=== PATIENT | female | born 1960 | race African-American/Black ===

== ENCOUNTER 2016-03-12 11:54 | Emergency (ER) | payer MEDICARE ==
[~2016-03-12 11:54] MED LIST: Lorazepam 2 MG/ML VIAL ONE; Sodium Chloride 0.9% 1,000 ML BAG ONE
[2016-03-12] MEDS ORDERED: Lorazepam 2 MG/ML VIAL ONE (12:26)
[2016-03-12] MEDS ORDERED: Insulin Regular 300 UNITS/3 ML VIAL ONE (12:43)
[2016-03-12 13:12] LABS: INR-International Normal Ratio 1.2; Prothrombin Time 15.2 SEC (12.0-14.7)
[2016-03-12 13:23] LABS: Acetaminophen Less than 3.0 mcg/mL (10.0-30.0); Alcohol Less than 10 mg/dL (Less than 10); Amylase 33 U/L (25-125); Salicylate Less than 5.0 mg/dL (15.0-30.0)
[2016-03-12 13:25] LABS: PTT 21.2 SEC (22.9-36.1)
[2016-03-12 13:26] LABS: Bilirubin Negative (Negative); Blood, Urine Moderate (Negative); Clarity Hazy (Clear); Glucose, Urine (Dipstick) 500 mg/dL (Negative); Leukocyte Negative (Negative); Nitrite Negative (Negative); Protein, Urine (Dipstick) 100 mg/dL (Neg-Trace); Squamous Epithelial 0-3 HPF (0-3); Transitional Epithelial 0-3 HPF (0-3); Urobilinogen 0.2 mg/dL (0.2-1.0)
[2016-03-12 13:27] LABS: Bacteria/HPF Rare-Few HPF (None Seen); Crystals/HPF RARE AMORPH URATES HPF (Negative); Hyaline Casts/LPF 4-6 HYALINE CAST LPF (0-3 Hyaline); Renal Epithelial 0-3 HPF (0-3); Yeast-All Forms Rare HPF (None Seen)
[2016-03-12 13:27] LABS: ALT (SGPT) 14 U/L (0-55); AST (SGOT) 22 U/L (5-34); Albumin 3.8 g/dL (3.5-5.0); Alkaline Phosphatase 69 U/L (40-150); Anion Gap 30 mmol/L (10-20); BUN (Urea Nitrogen) 16 mg/dL (9.8-20.1); Bilirubin, Total 0.7 mg/dL (0.2-1.2); CK (CPK) 537 U/L (29-168); Calc. Creatinine Clearance 0 mL/min (70-130); Calcium 9.5 mg/dL (7.8-10.44); Chloride 105 mmol/L (98-107); Estimated GFR-MDRD 33; Glucose 534 mg/dL (70-105); Lipase 35 U/L (8-78); Potassium 3.2 mmol/L (3.5-5.1); Protein, Total 6.8 g/dL (6.0-8.3); Sodium 140 mmol/L (136-145)
[2016-03-12 13:28] LABS: Other Casts/LPF 4-6 MIXED CASTS LPF (0-3 Hyaline)
--- NOTE | 2016-03-12 13:35 | ERRECORD ---
[facility] EMERGENCY RECORD HPI GENERAL CHIEF COMPLAINT: Patient presents [place] close [place] but apparently there is no evidence of mvc. 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 unknown last treatment. pt non-verbal and is almost constantly seizing with eye deviation. (13:09 LLDO) Patient presents for evaluation of deviation is to the right and then to the left. most of tonic activity seems to be on the right upper and lower extremities. pt had a stroke last year (don't know what type) but that is her only previous seizeure. is constantly moving and cannot get an adequate CT head at this time. (13:18 LLDO) HISTORIAN: Additional history obtained from EMS. (13:18 LLDO) MECHANISM OF INJURY: Unknown mechanism, Mechanism of injury is unknown. (13:18 LLDO) LOCATION: Symptoms are generalized. (13:18 LLDO) QUALITY: unknown. (13:18 LLDO) SEVERITY: Maximum severity of symptoms moderate, Currently symptoms are moderate. (13:18 LLDO) TIME COURSE: Patient unable to describe onset of symptoms, are intermittent. (13:18 LLDO) ASSOCIATED WITH: Associated with ONLY ABOVE. (13:18 LLDO) EXACERBATED BY: Patient's condition exacerbated by ?. (13:18 LLDO) RELIEVED BY: Patient's condition relieved by nothing. (13:18 LLDO) ROS (13:22 LLDO) CONSTITUTIONAL: pt not verbal at all and no family here now. did get a call from friend but scant medical info. EYES: ONLY IN HPI. NOTES: Systems not reviewed; unable. PAST MEDICAL HISTORY MEDICAL HISTORY: Notes: stroke 2016, high blood pressure, gerd,. (12:42 LWAL) FEMALE SURGICAL HISTORY: kidney and pancreas transplant, cataracts both eyes, cornea transplants. (12:42 LWAL) NOTES: Nursing records reviewed, Agree with nursing records, Medication list reviewed. (13:28 LLDO) KNOWN ALLERGIES morphine (bulk) CURRENT MEDICATIONS (12:39 LWAL) Prograf: CAPSULE : Strength - 1 mg : ORAL Patient Dose: Unknown. &a-1R&a+25V*p+0X*r7455O*c202B*c15G*c2P*p-0X&a-25V&a+1R Name: Mel Simmons : 1960 F55 MedRec: [id number] AcctN: [id number] Prepared: Claudia Mar 12, 2016 13:39 by Interface Page 1 of 3 pMD [facility] EMERGENCY RECORD omeprazole: CAPSULE,DELAYED RELEASE (ENTERIC COATED) : Strength - 10 mg : ORAL Patient Dose: Unknown. PHYSICAL EXAM (13:24 LLDO) CONSTITUTIONAL: Vital signs reviewed, Patient afebrile, Pulse, tachycardic, 122, Blood pressure, BP SLIGHTLY LOW, Respiratory rate normal, Patient appears non toxic, Patient alert and oriented to person, place and time, respiration and sats both okay. continues to be tachy. HEAD: Head exam included findings of head atraumatic, normocephalic. EYES: SEE HPI AND ROS. left cataract. NECK: Neck exam included findings of normal range of motion, Trachea midline, Thyroid normal. RESPIRATORY CHEST: Respiratory exam included findings of no respiratory distress. UPPER EXTREMITY: left forearm shunt. NEURO: [place] coma scale, Neuro exam findings include patient oriented to, Speech, Gait abnormal, see above. SKIN: Skin exam included findings of skin warm, dry, and normal in color. MEDICATION ADMINISTRATION SUMMARY Drug Name: *sodium chloride 0.9 % intravenous, Dose Ordered: 2 L, Route: IV Fluid Infusion, Status: Ordered, Time: 12:53 03/12/2016, Drug Name: Ativan injection, Dose Ordered: 2 mg, Route: IV Push, Status: Ordered, Time: 12:15 03/12/2016, Drug Name: Ativan injection, Dose Ordered: 2 mg, Route: IV Push, Status: Ordered, Time: 12:15 03/12/2016, Drug Name: Ativan injection, Dose Ordered: 2 mg, Route: IV Push, Status: Given, Time: 12:53 03/12/2016, Drug Name: insulin regular pork, Dose Ordered: 8 units, Route: IV Push, Status: Given, Time: 12:50 03/12/2016, *Additional information available in notes, Detailed record available in Medication Service section. PROBLEM LIST No recorded problems DIAGNOSIS (13:31 LLDO) FINAL: PRIMARY: Altered mental status, ADDITIONAL: Seizure, Type 2 Diabetes mellitus (IDDM) with Coma - hypoglycemic, UTI SITE NOT SPECIFIED. PRESCRIPTION No recorded prescriptions &a-1R&a+25V*p+0X*s5357S*c202B*c15G*c2P*p-0X&a-25V&a+1R Name: Mel Simmons : 1960 F55 MedRec: [id number] AcctNum: [id number] Prepared: Claudia Mar 12, 2016 13:39 by Interface Page 2 of 3 pMD [facility] EMERGENCY RECORD DISPOSITION PATIENT: Disposition Type: Transfer, Disposition: Transfer to [facility]. (13:32 LLDO) Patient left the department. (13:36 SCHI) Macias: LLDO=MD Glen, Tereso LWAL=SUAD Rodriguez, Viktoria SCHI=SUAD Gutiérrez, Ryan &a-1R&a+25V*p+0X*t6729P*c202B*c15G*c2P*p-0X&a-25V&a+1R Name: Mel Simmons : 1960 F55 MedRec: [id number] AcctNum: [id number] Prepared: Claudia Mar 12, 2016 13:39 by Interface Page 3 of 3 pMD MTDD
[2016-03-12 13:37] LABS: Carbon Dioxide 8 mmol/L (22-29)
[2016-03-12 13:41] LABS: Hemoglobin 13.6 g/dL (12.0-16.0); Manual Diff?? YES; Mean Corpuscular HGB CONC 28.2 g/dL (32.0-36.0); Mean Corpuscular Hemoglobin 20.3 pg (27.0-31.0); Mean Platelet Volume 11.9 fL (7.4-10.4); Platelet Count 178 thou/uL (130-400); RBC Distribution Width 16.1 % (11.5-14.5)
--- NOTE | 2016-03-12 13:41 | PICIS ---
[facility] EMERGENCY RECORD TRIAGE (12:04 SFRE) TRIAGE NOTES: AMS. SEIZURE. (12:04 SFRE) PATIENT: PHONE: . (12:43) NAME: Mel Simmons, AGE: 55, GENDER: female, : Sun1960, TIME OF GREET: Sun Mar 12, 2016 11:55, PREFERRED LANGUAGE: Lithuanian, ECODE BILLING MAP: [facility], SSN: [id number], Zip Code: [address], KG WEIGHT: 90.72, , , PERSON ID: [id number]. (12:04 SFRE) ETHNICITY: Unable to Determine. (12:45) COMPLAINT: UNCONSCIOUS. (12:04 SFRE) ADMISSION: URGENCY: 1 Critical, ADMISSION SOURCE: Other, TRANSPORT: AMBULANCE - [facility], BED: ED -01. (12:04 SFRE) ASSESSMENT: Assessment: altered mental status, seizure. (12:42 LWAL) PROVIDERS: TRIAGE NURSE: Cari Mullen RN. (12:04 SFRE) KNOWN ALLERGIES morphine (bulk) CURRENT MEDICATIONS (12:39 LWAL) Prograf: CAPSULE : Strength - 1 mg : ORAL Patient Dose: Unknown. omeprazole: CAPSULE,DELAYED RELEASE (ENTERIC COATED) : Strength - 10 mg : ORAL Patient Dose: Unknown. NURSING ASSESSMENT: SEIZURE (12:42 LWAL) CONSTITUTIONAL: Patient arrives, via [facility], sjems, Unsteady gait, Lift to cart, Inability to ambulate, History obtained from, Patient appears, Patient, unresponsive, Skin abnormal, Skin temperature is cold, Skin, clammy, Skin normal in color, Mucous membranes pink, Mucous membranes, dry, Patient is well-groomed, Patient complains of found on side of [place], pt unresponsive. SEIZURE: Seizure assessment findings include patient actively seizing, focal, to the entire body, eyes deviated to the left, incontinent of both bowel and bladder, pt posturing corticate. nurses and md at bedside. no IV at time to give meds. pt breathing well. eyes to deviate to the left upper., Notes: pt to have 3 short seizure activity before and after Ativan is given. ENT: Notes: pt with nasal trumpet to help with breathing. mouth is bloody and dried. NOTES: Patient tolerated procedure well. SAFETY: Side rails up, Cart/Stretcher in lowest position, Family at bedside, Call light within reach, Hospital ID band on. NURSING PROCEDURE: IV (12:04 SFRE) &a-1R&a+25V*p+0X*t2190K*c202B*c15G*c2P*p-0X&a-25V&a+1R Name: Mel Simmons : 1960 F55 MedRec: [id number] AcctNum: [id number] Prepared: Claudia Mar 12, 2016 13:38 by Interface Page 1 of 8 pMD [facility] EMERGENCY RECORD PATIENT IDENITIFIER: Patient's identity verified by EMS/har[place] police lieutenant. IV SITE 1: IV therapy indicated for hydration, IV therapy indicated for medication administration, Intraosseous line established, to the left tibia, using a 15 gauge intraosseous needle, in one attempt, Site prepped with ALCOHOL PREP, Saline lock established, Flushed with normal saline (mls): 10 ML, Notes: TO INSERT IO. NOTES: Patient tolerated procedure well. SAFETY: Side rails up, Cart/Stretcher in lowest position, Family at bedside, Call light within reach, Hospital ID band on. NURSING PROCEDURE: SPINE PRECAUTIONS (12:04 SFRE) PATIENT IDENTIFIER: Patient actively involved in identification process, Patient's identity verified by EMS/[place] police lieutenant. SPINE PRECAUTIONS: Cervical collar applied, Patient placed on long board, Notes: BROUGHT IN BY EMS. REMOVAL: Long board removed, removed by GLEN, PT SEIZING AND COMING OFF BOARD. NOTES: Patient tolerated procedure well. SAFETY: Side rails up, Cart/Stretcher in lowest position, Hospital ID band on. NURSING PROCEDURE: TRANSPORT TO TESTS (12:04 SFRE) PATIENT IDENTIFIER: Patient's identity verified by EMS/har[place] police lieutenant. TRANSPORT TO TESTS: Patient transported to CT scan, via cart, Accompanied by x-ray laboratory mechanical technician, Accompanied by nurse. FOLLOW-UP: After procedure, patient returned to emergency department, Notes: 1221. NOTES: Patient tolerated procedure with difficulty, Notes: PT UNABLE TO HOLD STILL FOR FILMS. NURSING PROCEDURE: URINE COLLECTION (12:04 SFRE) PATIENT IDENTIFIER: Patient actively involved in identification process, Patient's identity verified by EMS/har[place] police lieutenant. URINE COLLECTION FEMALE: Urine collection indicated to monitor output, Townsend catheter with urinometer inserted, using a 16fr catheter, output amount (mL) 250 ML, urine yellow in color, and cloudy, sediment noted, Townsend has been anchored to leg and labeled with date and time, Specimen collected, labeled in the presence of the patient and sent to lab, TEMP PROBE TOWNSEND INSERTED. NOTES: Patient tolerated procedure well. ORDER DETAILS Order Name: Amylase, Status: Active, Time: 12:31 03/12/2016, User: MARY, - Ordered for: MD Carroll Lloyd, &a-1R&a+25V*p+0X*c1154E*c202B*c15G*c2P*p-0X&a-25V&a+1R Name: Mel Simmons : 1960 F55 MedRec: [id number] AcctNum: [id number] Prepared: Claudia Mar 12, 2016 13:38 by Interface [address] [place] [address] EMERGENCY RECORD - Entered by: MD Carroll Lloyd - Claudia Mar 12, 2016 12:31, - Quantity: 1, Order Name: B type Natriuretic Peptide, Status: Active, Time: 12:14 03/12/2016, User: MARY, - Ordered for: MD Carroll Lloyd, - Entered by: MD Carroll Lloyd - Claudia Mar 12, 2016 12:14, - Quantity: 1, Order Name: Beta-Hydroxybutyrate (Ketone), Status: Active, Time: 12:20 03/12/2016, User: MARY, - Ordered for: MD Carroll Lloyd, - Entered by: MD Carroll Lloyd - Claudia Mar 12, 2016 12:20, - Quantity: 1, Order Name: SEARCHLIGHT OPERATOR ED, Status: Done, Time: 12:13 03/12/2016, User: MICHAEL, - Ordered for: MD Carroll Lloyd, - Entered by: SUAD Mullen Stacey - Claudia Mar 12, 2016 12:12, - Quantity: 1, Order Name: Cardiac Profile w/CKMB & Troponin - I, Status: Active, Time: 12:14 03/12/2016, User: LLDO, - Ordered for: MD Carroll Lloyd, - Entered by: MD Carroll Lloyd - Sun Mar 12, 2016 12:14, - Quantity: 1, Order Name: CBC with Differential, Status: Active, Time: 12:14 03/12/2016, User: MARY, - Ordered for: MD Carroll Lloyd, - Entered by: MD Carroll Lloyd - Sun Mar 12, 2016 12:14, - Quantity: 1, Order Name: CK (CPK), Status: Active, Time: 12:14 03/12/2016, User: LLDO, - Ordered for: MD Carroll Lloyd, - Entered by: MD Carroll Lloyd - Sun Mar 12, 2016 12:14, - Quantity: 1, Order Name: Comprehensive Metabolic Panel, Status: Active, Time: 12:14 03/12/2016, User: MARY, - Ordered for: MD Carroll Lloyd, - Entered by: MD Carroll Lloyd - Sun Mar 12, 2016 12:14, - Quantity: 1, Order Name: CT Brain WO Con, Status: Active, Time: 00:00 03/12/2016, User: LL, - Ordered for: MD Carroll Lloyd, - Entered by: MD Carroll Lloyd - Sun Mar 12, 2016, - Quantity: 1, Order Name: CT Cervical Spine WO Con, Status: Active, Time: 00:00 03/12/2016, User: LL, - Ordered for: MD Carroll Lloyd, - Entered by: MD Carroll Lloyd - Sun Mar 12, 2016, - Quantity: 1, Order Name: Culture, Blood, Status: Active, Time: 12:14 03/12/2016, User: LLDO, - Ordered for: MD Carroll Lloyd, &a-1R&a+25V*p+0X*j6130I*c202B*c15G*c2P*p-0X&a-25V&a+1R Name: Mel Simmons : 1960 F55 MedRec: [id number] AcctNum: [id number] Prepared: Claudia Mar 12, 2016 13:38 by Interface Page 3 of 8 pMD [facility] EMERGENCY RECORD - Entered by: MD Carroll Lloyd - Sun Mar 12, 2016 12:14, - Quantity: 1, Order Name: Culture, Urine, Status: Active, Time: 12:14 03/12/2016, User: LLDO, - Ordered for: MD Carroll Lloyd, - Entered by: MD Carroll Lloyd - Sun Mar 12, 2016 12:14, - Quantity: 1, Order Name: Drug Screen, Serum, Status: Active, Time: 12:20 03/12/2016, User: LLDO, - Ordered for: MD Carroll Lloyd, - Entered by: MD Carroll Lloyd - Sun Mar 12, 2016 12:20, - Quantity: 1, Order Name: Drug Screen, Urine, Status: Active, Time: 12:20 03/12/2016, User: LLDO, - Ordered for: MD Carroll Lloyd, - Entered by: MD Carroll Lloyd - Sun Mar 12, 2016 12:20, - Quantity: 1, Order Name: EKG 12 Lead in Emergency Room, Status: Active, Time: 12:14 03/12/2016, User: LLDO, - Ordered for: MD Carroll Lloyd, - Entered by: MD Carroll Lloyd - Sun Mar 12, 2016 12:14, - Quantity: 1, Order Name: ERRT Oxygen Usage ER, Status: Active, Time: 12:14 03/12/2016, User: LLDO, - Ordered for: MD Carroll Lloyd, - Entered by: MD Carroll Lloyd - Sun Mar 12, 2016 12:14, - Quantity: 1, Order Name: ERRT Pulse Oximeter ER, Status: Active, Time: 12:14 03/12/2016, User: LLDO, - Ordered for: MD Carroll Lloyd, - Entered by: MD Carroll Lloyd - Sun Mar 12, 2016 12:14, - Quantity: 1, Order Name: TOWNSEND CATHETER ED, Status: Done, Time: 12:13 03/12/2016, User: SFRE, - Ordered for: MD Carroll Lloyd, - Entered by: SUAD Mullen, Cari - Claudia Mar 12, 2016 12:12, - Quantity: 1, Order Name: Lipase, Status: Active, Time: 12:14 03/12/2016, User: MARY, - Ordered for: MD Carroll Lloyd, - Entered by: MD Carroll Lloyd - Sun Mar 12, 2016 12:14, - Quantity: 1, Order Name: NPO IN ED, Status: Active, Time: 12:12 03/12/2016, User: MICHAEL, - Ordered for: MD Carroll Lloyd, - Entered by: SUAD Mullen, Cari Claudia Mar 12, 2016 12:12, - Quantity: 1, Order Name: Protime with INR, Status: Active, Time: 12:14 03/12/2016, User: MARY, - Ordered for: MD Carroll Lloyd, &a-1R&a+25V*p+0X*c5080P*c202B*c15G*c2P*p-0X&a-25V&a+1R Name: Mel Simmons : 1960 F55 MedRec: [id number] AcctNum: [id number] Prepared: Claudia Mar 12, 2016 13:38 by Interface Page 4 of 8 D [facility] EMERGENCY RECORD - Entered by: MD Carroll Lloyd - Sun Mar 12, 2016 12:14, - Quantity: 1, Order Name: PTT, Status: Active, Time: 12:14 03/12/2016, User: MARY, - Ordered for: MD Carroll Lloyd, - Entered by: MD Carroll Lloyd - Claudia Mar 12, 2016 12:14, - Quantity: 1, Order Name: SALINE LOCK, Status: Done, Time: 12:14 03/12/2016, User: MICHAEL, - Ordered for: MD Carroll Lloyd, - Entered by: SUAD Mullen, Cari Claudia Mar 12, 2016 12:12, - Quantity: 1, Order Name: Thyroid Stimulating Hormone, Status: Active, Time: 12:14 03/12/2016, User: MARY, - Ordered for: MD Carroll Lloyd, - Entered by: MD Carroll Lloyd - Sun Mar 12, 2016 12:14, - Quantity: 1, Order Name: Urinalysis w/ Rflx Microscopic, Status: Canceled, Time: 12:14 03/12/2016, User: MICHAEL, - Ordered for: MD Carroll Lloyd, - Entered by: MD Carroll Lloyd - Easley Mar 12, 2016 12:14, - Quantity: 1, Order Name: Urinalysis with Microscopic, Status: Active, Time: 12:13 03/12/2016, User: MICHAEL, - Ordered for: MD Carroll Lloyd, - Entered by: SUAD Mullen, Cari - Easley Mar 12, 2016 12:13, - Quantity: 1, Order Name: XR Chest 1 View Portable, Status: Active, Time: 12:13 03/12/2016, User: MARY, - Ordered for: MD Carroll Lloyd, - Entered by: MD Carroll Lloyd - Easley Mar 12, 2016 12:13, - Quantity: 1. MEDICATION ADMINISTRATION SUMMARY Drug Name: *sodium chloride 0.9 % intravenous, Dose Ordered: 2 L, Route: IV Fluid Infusion, Status: Ordered, Time: 12:53 03/12/2016, Drug Name: Ativan injection, Dose Ordered: 2 mg, Route: IV Push, Status: Ordered, Time: 12:15 03/12/2016, Drug Name: Ativan injection, Dose Ordered: 2 mg, Route: IV Push, Status: Ordered, Time: 12:15 03/12/2016, Drug Name: Ativan injection, Dose Ordered: 2 mg, Route: IV Push, Status: Given, Time: 12:53 03/12/2016, Drug Name: insulin regular pork, Dose Ordered: 8 units, Route: IV Push, Status: Given, Time: 12:50 03/12/2016, *Additional information available in notes, Detailed record available in Medication Service section. MEDICATION SERVICE Ativan injection: Order: Ativan injection (lorazepam) - Dose: 2 mg : IV Push &a-1R&a+25V*p+0X*x1335Z*c202B*c15G*c2P*p-0X&a-25V&a+1R Name: Shaun Simmonskael Conner : 1960 F55 MedRec: [id number] AcctNum: [id number] Prepared: Easley Mar 12, 2016 13:38 by Interface Page 5 of 8 pMD [facility] EMERGENCY RECORD Schedule: Now Ordered by: Tereso Carroll MD Entered by: MD Claudia Murdock Mar 12, 2016 12:15 . Ativan injection: Order: Ativan injection (lorazepam) - Dose: 2 mg : IV Push Schedule: Now Ordered by: Tereso Carroll MD Entered by: MD Claudia Murdock Mar 12, 2016 12:15 . Ativan injection: Order: Ativan injection (lorazepam) - Dose: 2 mg : IV Push Schedule: Now Ordered by: Tereso Carroll MD Entered by: MD Claudia Murdock Mar 12, 2016 12:31 Documented as given by: Ryan Gutiérrez RN Easley Mar 12, 2016 12:53 Patient, Medication, Dose, Route and Time verified prior to administration. IV SITE #1 IVP, subsequent different medication, Catheter placement confirmed via flush prior to administration, IV site without signs or symptoms of infiltration during medication administration, No swelling during administration, No drainage during administration, IV flushed after administration, Correct patient, time, route, dose and medication confirmed prior to administration, Patient advised of actions and side-effects prior to administration, Allergies confirmed and medications reviewed prior to administration. insulin regular pork: Order: insulin regular pork (insulin,pork) - Dose: 8 units : IV Push Schedule: Now Ordered by: Tereso Carroll MD Entered by: MD Claudia Murdock Mar 12, 2016 12:16 Documented as given by: Ryan Gutiérrez RN Easley Mar 12, 2016 12:50 Patient, Medication, Dose, Route and Time verified prior to administration. IV SITE #1 IVP, subsequent different medication, Slowly, Catheter placement confirmed via flush prior to administration, IV site without signs or symptoms of infiltration during medication administration, No swelling during administration, No drainage during administration, IV flushed after administration, Correct patient, time, route, dose and medication confirmed prior to administration, Patient advised of actions and side-effects prior to administration, Allergies confirmed and medications reviewed prior to administration. sodium chloride 0.9 % intravenous: Order: sodium chloride 0.9 % intravenous (0.9 % sodium chloride) - Dose: 2 L : IV Fluid Infusion Notes: (Bolus) one in each IO Ordered by: Tereso Carroll MD Entered by: MD Claudia Murdock Mar 12, 2016 12:53 . HPI GENERAL CHIEF COMPLAINT: Patient [place] evaluation [place] but apparently there is no &a-1R&a+25V*p+0X*v6676J*c202B*c15G*c2P*p-0X&a-25V&a+1R Name: Mel Simmons : 1960 F55 MedRec: [id number] AcctNum: [id number] Prepared: Claudia Mar 12, 2016 13:38 by Interface Page 6 of 8 pMD [facility] EMERGENCY RECORD evidence of mvc. 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 unknown last treatment. pt non-verbal and is almost constantly seizing with eye deviation. (13:09 LLDO) Patient presents for evaluation of deviation is to the right and then to the left. most of tonic activity seems to be on the right upper and lower extremities. pt had a stroke last year (don't know what type) but that is her only previous seizeure. is constantly moving and cannot get an adequate CT head at this time. (13:18 LLDO) HISTORIAN: Additional history obtained from EMS. (13:18 LLDO) MECHANISM OF INJURY: Unknown mechanism, Mechanism of injury is unknown. (13:18 LLDO) LOCATION: Symptoms are generalized. (13:18 LLDO) QUALITY: unknown. (13:18 LLDO) SEVERITY: Maximum severity of symptoms moderate, Currently symptoms are moderate. (13:18 LLDO) TIME COURSE: Patient unable to describe onset of symptoms, are intermittent. (13:18 LLDO) ASSOCIATED WITH: Associated with ONLY ABOVE. (13:18 LLDO) EXACERBATED BY: Patient's condition exacerbated by ?. (13:18 LLDO) RELIEVED BY: Patient's condition relieved by nothing. (13:18 LLDO) ROS (13:22 LLDO) CONSTITUTIONAL: pt not verbal at all and no family here now. did get a call from friend but scant medical info. EYES: ONLY IN HPI. NOTES: Systems not reviewed; unable. PAST MEDICAL HISTORY MEDICAL HISTORY: Notes: stroke 2016, high blood pressure, gerd,. (12:42 LWAL) FEMALE SURGICAL HISTORY: kidney and pancreas transplant, cataracts both eyes, cornea transplants. (12:42 LWAL) NOTES: Nursing records reviewed, Agree with nursing records, Medication list reviewed. (13:28 LLDO) PHYSICAL EXAM (13:24 LLDO) CONSTITUTIONAL: Vital signs reviewed, Patient afebrile, Pulse, tachycardic, 122, Blood pressure, BP SLIGHTLY LOW, Respiratory rate normal, Patient appears non toxic, Patient alert and oriented to person, place and time, respiration and sats both okay. continues to be tachy. HEAD: Head exam included findings of head atraumatic, normocephalic. EYES: SEE HPI AND ROS. left cataract. &a-1R&a+25V*p+0X*n3704Y*c202B*c15G*c2P*p-0X&a-25V&a+1R Name: Mel Simmons : 1960 F55 MedRec: [id number] AcctNum: [id number] Prepared: Claudia Mar 12, 2016 13:38 by Interface Page 7 of 8 pMD [facility] EMERGENCY RECORD NECK: Neck exam included findings of normal range of motion, Trachea midline, Thyroid normal. RESPIRATORY CHEST: Respiratory exam included findings of no respiratory distress. UPPER EXTREMITY: left forearm shunt. NEURO: [place] coma scale, Neuro exam findings include patient oriented to, Speech, Gait abnormal, see above. SKIN: Skin exam included findings of skin warm, dry, and normal in color. EVENTS TRANSFER: Triage to Emergency Main ED -01. (Claudia Mar 12, 2016 12:04 SFRE) Removed from Emergency Main ED -01. (13:36 SCHI) PROBLEM LIST No recorded problems DIAGNOSIS (13:31 LLDO) FINAL: PRIMARY: Altered mental status, ADDITIONAL: Seizure, Type 2 Diabetes mellitus (IDDM) with Coma - hypoglycemic, UTI SITE NOT SPECIFIED. DISPOSITION PATIENT: Disposition Type: Transfer, Disposition: Transfer to [facility]. (13:32 LLDO) Patient left the department. (13:36 SCHI) PRESCRIPTION No recorded prescriptions ADMIN DIGITAL SIGNATURE: MD Carroll Lloyd. (13:29 LLDO) MD Carroll Lloyd. (13:32 LLDO) RESULTS (13:01 LWAL) LABORATORY: [facility] Collection DT: Claudia Mar 12, 2016 12:53, *Accuc[facility] 394 - H mg/dL, Range (70-110). Macias: MARY=MD Glen, Tereso KWAN=SUAD Rodriguez, Viktoria HOSKINS=SUAD Gutiérrez, Ryan RODRIGUEZ=SUAD Mullen, Cari &a-1R&a+25V*p+0X*q4195S*c202B*c15G*c2P*p-0X&a-25V&a+1R Name: Mel Simmons : 1960 F55 MedRec: [id number] AcctNum: [id number] Prepared: Claudia Mar 12, 2016 13:38 by Interface Page 8 of 8 pMD MTDD
[2016-03-12 13:42] LABS: Anisocytosis MARKED = >30 cells (100X) (0-5/hpf); Band 10 % (5-11); Lymphocytes 8 % (21-51); MDiff Complete? YES; Microcytosis MARKED = >30 cells (100X) (0-5/hpf); Monocytes 2 % (0-10); Neutrophil 80 % (42-75)
[2016-03-12 13:43] LABS: Rouleaux Formation MODERATE= 6-15 cells (100X) (None Seen)
[2016-03-12 13:49] LABS: Troponin I 0.124 ng/mL (< 0.028)
[2016-03-12 13:51] LABS: CKMB 18.4 ng/mL (0-6.6)
--- NOTE | 2016-03-12 14:27 | RAD ---
PORTABLE CHEST: Date: 03/12/16 PROVIDED CLINICAL HISTORY: Altered mental status. FINDINGS: The cardiac silhouette is within normal limits for portable technique. Vascular calcification is not ed involving the aortic arch. No focal consolidation, pleural fluid, or pneumothorax apparent. IMPRESSION: No evidence for an acute cardiopulmonary process. POS: FRANK
[2016-03-12 17:20] LABS: Amphetamine Not Detected (NotDetected); Barbiturates Screen Not Detected (NotDetected); Benzodiazepine Screen Not Detected (NotDetected); Cocaine Metabolite Screen Not Detected (NotDetected); Medtox Control Line Valid? VALID (VALID); Methadone Not Detected (NotDetected); Methamphetamine Not Detected (NotDetected); Opiate Screen Not Detected (NotDetected); Oxycodone Screen Not Detected (NotDetected); Phencyclidine (PCP) Not Detected (NotDetected); THC/Cannabinoid Screen Detected (NotDetected); Tricyclic Screen Not Detected (NotDetected)
== END 2016-03-12 13:20 | disposition short-term general hospital (02) ==
LOC: MADERS 11:54
DX: E11.641 Type 2 diabetes mellitus with hypoglycemia with coma (principal); N39.0 Urinary tract infection, site not specified; R41.82 Altered mental status, unspecified; R56.9 Unspecified convulsions; K21.9 Gastro-esophageal reflux disease without esophagitis; Z86.73 Personal history of transient ischemic attack (TIA), and cerebral infarction without residual deficits; Z79.899 Other long term (current) drug therapy
CPT/HCPCS: 71010; 81001; 82010; 82150; 82550; 82553; 82962; 83690; 83880; 84484; 85610; 85730; 87040; 87086; 93005; 94760; G0478; G0479 ×3; 36416; 51702; 80053; 80306; 80307; 84443; 85025; 96361; 96374; 96375; 96376; 99292; 36415-59; J1815; J2060; J7050